=== PATIENT | male | born 1960 | race Caucasian/White ===

== ENCOUNTER 2019-08-11 12:56 | Emergency (ER) | payer BC ==
[2019-08-11] MEDS ORDERED: Morphine 4 MG/ML VIAL ONE (13:09)
[2019-08-11] MEDS ORDERED: Sodium Chloride 0.9% 1,000 ML IV ONE (13:09)
[2019-08-11] MEDS ORDERED: Morphine 4 MG/ML VIAL IVPUSH ONE (13:10)
[2019-08-11] MEDS ORDERED: Nitroglycerin 0.4 MG Tab.SL SL ONE ×2 (13:23→13:38)
[2019-08-11] MEDS ORDERED: Ticagrelor 90 MG Tab PO ONE (13:25)
[2019-08-11] MEDS ORDERED: Heparin Sodium 5,000 Units/ML Vial IVPUSH ONE (13:26)
[2019-08-11] MEDS ORDERED: Aspirin 81 MG Tab.Chew PO ONE (13:27)
[2019-08-11] MEDS ORDERED: Heparin Sodium/0.45% NaCl 500 ML IV SCH (13:29)
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
--- NOTE | 2019-08-11 13:37 | CR ---
INDICATION: Chest pain. CHEST ONE VIEW: An AP upright portable view of the chest 08/10/19 - no comparisons. The heart did not appear enlarged. Overlying EKG leads are noted. The aorta is slightly tortuous with calcification minimally in the arch. An active infiltrate or effusion was not identified. Degenerative changes are noted at the glenohumeral joints bilaterally, right greater than left. IMPRESSION: No acute process. MTDD
[2019-08-11] MEDS ORDERED: Metoprolol Tartrate 5 MG in Sodium Chloride 0.9% 50 ML IV ONE (13:49)
[2019-08-11] MEDS ORDERED: Metoprolol Tartrate 5 MG/5 ML SDV ONE (13:51)
[2019-08-11] MEDS ORDERED: Metoprolol Tartrate 5 MG/5 ML SDV IVPUSH ONE (13:51)
== END 2019-08-11 13:55 ==
LOC: EDBD 12:56 → FB.ED 12:56
DX: I21.19 ST elevation (STEMI) myocardial infarction involving other coronary artery of inferior wall (principal); I21.29 ST elevation (STEMI) myocardial infarction involving other sites
CPT/HCPCS: 36415; 71045; 80053; 84484; 85025; 85610; 93005; 96365; 96375; 99291; A9270; J1644; J2270; J3490; J7030